=== PATIENT | female | born 1995 | race Caucasian/White ===

== ENCOUNTER 2016-10-24 07:34 | Emergency (ER) | payer SELFPAY ==
[~2016-10-24] VITALS: Ht 157.5 cm; Wt 61.5 kg
[2016-10-24] MEDS ORDERED: ONDANSETRON ODT 4 MG PO ONE (08:00)
[2016-10-24] MEDS ORDERED: CEFTRIAXONE 1,000 MG IM ONE (08:30)
[2016-10-24] MEDS ORDERED: AZITHROMYCIN 500 MG TABLET PO SCH (08:30)
[2016-10-24 09:38] LABS: HCG UR OBC PASS
[2016-10-24] MEDS ORDERED: AZITHROMYCIN 500 MG TABLET ONE (11:01)
[2016-10-24] MEDS ORDERED: CEFTRIAXONE 250 MG ONE (11:02)
[2016-10-24] MEDS ORDERED: ONDANSETRON ODT 4 MG ONE (11:02)
[2016-10-24 11:18] VITALS: BP 93/65
== END 2016-10-24 11:20 | disposition home or self-care (01) ==
LOC: ED 09:30
DX: N76.0 Acute vaginitis (principal); R10.2 Pelvic and perineal pain
CPT/HCPCS: 76830; 81001; 81025; 87086; 87210; 87491; 87591; 87808; 96372; 99285; J0696; Q0162